=== PATIENT | male | born 1980 | race Caucasian/White ===

== ENCOUNTER 2022-07-05 19:41 | Inpatient (IN) | payer BC, OTHER ==
[~2022-07-05] VITALS: Ht 170.2 cm; Wt 101.2 kg
--- NOTE | 2022-07-05 19:52 | NUR ---
CHIKA 37 FROM HOME C/O SEIZURE FIRST TIME AT HOME, N/V GIVEN ZOFRAN 4MG IVP. AXO4. AT BEDSIDE.
--- NOTE | 2022-07-05 19:53 | NUR ---
DR. COONEY AT BEDSIDE
[2022-07-05 20:32] LABS: BASOPHILS % (AUTO) 0.3 % (0.0-2.0); EOSINOPHILS % (AUTO) 1.8 % (0.0-6.0); HEMATOCRIT 43 % (39-51); LYMPHOCYTES # (AUTO) 3.6 K/uL (0.8-4.8); LYMPHOCYTES % (AUTO) 32.3 % (20.0-44.0); MEAN CORPUSCULAR HGB CONC 35 g/dl (31.0-36.0); MEAN CORPUSCULAR VOLUME 84 fL (80-96); MONOCYTES # (AUTO) 1.2 K/uL (0.1-1.30); MONOCYTES % (AUTO) 10.7 % (2.0-12.0); NEUTROPHILS # (AUTO) 6.2 K/uL (1.8-8.9); NEUTROPHILS % (AUTO) 54.9 % (43.0-81.0); PLATELET COUNT (AUTO) 278 K/uL (150-450); RED BLOOD CELL COUNT(AUTO) 5.16 MIL/uL (4.5-6.0); WHITE BLOOD COUNT (AUTO) 11.3 K/uL (4.3-11.0)
[2022-07-05 20:41] LABS: ALBUMIN 3.8 g/dL (3.4-5.0); BILIRUBIN,DIRECT 0.2 mg/dL (0.0-0.2); BILIRUBIN,TOTAL 0.5 mg/dL (0.2-1.0); CALCIUM, SERUM 8.7 mg/dL (8.5-10.1); CREATININE 1.4 mg/dL (0.6-1.3); TOTAL PROTEIN, SERUM 6.6 g/dL (6.4-8.2)
--- NOTE | 2022-07-05 20:51 | NUR ---
PT TAKEN TO CT
[2022-07-05] MEDS ORDERED: LORAZEPAM INJ 2 MG/ML VIAL IV ONE (22:00)
[2022-07-05] MEDS ORDERED: LEVETIRACETAM (500MG) 1,000 MG in IV NS 0.9% 100 ML IV SCH (22:00)
[2022-07-05] MEDS ORDERED: LEVETIRACETAM (500MG) 500 MG/5 ML VIAL IV ONE (22:00)
[2022-07-05] MEDS ORDERED: LORAZEPAM INJ 2 MG/ML VIAL ONE (22:01)
--- NOTE | 2022-07-05 22:08 | NUR ---
PT NOTED W SEIZURE STARTING AT 2158 ENDING AT 2200. ATIVAN AND KEPPRA GIVEN THROUGH PERIPHERAL IV. 2L O2 VIA NC ADMINISTERED. SPOUSE AT [place].
[2022-07-05] MEDS ORDERED: IV PREMIX D5 1/2NS + KCL 1,000 ML IV ONE ×2 (22:30→23:01)
--- NOTE | 2022-07-05 22:32 | NUR ---
DR. KHURRAM LORENZ - NEUROLOGIST [phone] [facility] DONE AT [facility] JOANN RODAS BACK IN 2016
--- NOTE | 2022-07-05 22:39 | NUR ---
CALLED [facility] PAGE LINE TO HAVE A CALL BACK FROM DR. LORENZ OR HIS ONCALL PER DR. BURT REQUEST.
--- NOTE | 2022-07-05 22:46 | NUR ---
COVID SWAB DONE AND SENT TO LAB
--- NOTE | 2022-07-05 23:26 | NUR ---
CALLED [facility] PAGE LINE TO FOLLOW UP ON NEUROLOGY CALL BACK
[2022-07-06] MEDS ORDERED: ZOLPIDEM TARTRATE 5 MG TABLET PO PRN
[2022-07-06] MEDS ORDERED: ONDANSETRON HCL/PF 4 MG/2 ML VIAL IVP PRN
[2022-07-06] MEDS ORDERED: LEVETIRACETAM (500MG) 500 MG in IV NS 0.9% 100 ML IV SCH ×2
[2022-07-06] MEDS ORDERED: LORAZEPAM INJ 2 MG/ML VIAL IV PRN
[2022-07-06] MEDS ORDERED: MAG HYDROX/AL HYDROX/SIMETH 30 ML UDC PO PRN
[2022-07-06] MEDS ORDERED: MAGNESIUM HYDROXIDE 30 ML UDC PO PRN
[2022-07-06] MEDS ORDERED: Z GUARD REMEDY 4 OZ OINT TP PRN
--- NOTE | 2022-07-06 00:53 | NUR ---
IV LINE DISLODGED. RESTARTED 20G R AC
[2022-07-06] MEDS ORDERED: IV NS 0.9% 1,000 ML IV PRN ×2 (00:59)
--- NOTE | 2022-07-06 01:45 | NUR ---
RECEIVED PT REPORT FROM NURSE REEVES OF ED.
--- NOTE | 2022-07-06 01:47 | NUR ---
REPORT GIVEN TO BRANDEE NETTLES 3RD FLOOR W
--- NOTE | 2022-07-06 02:00 | NUR ---
WORKFORCE DEVELOPMENT SPECIALIST NOTE RECEIVED PT FROM WELDER FITTER HELPER. PT ABLE TO WALK FROM GURNEY TO BED. A/OX4, ABLE TO MAKE NEEDS KNOWN. ORIENTED TO STAFF AND UNIT. PT IS IN RA TOLERATING WELL, BREATHING EVEN AND UNLABORED @ THIS TIME. PT IV PRESENT ON RIGHT AC #20G RUNNING NS @ 200MLS/HR, PATENT, INTACT AND FLUSHES WELL W/ NO S & SX OF INFILTRATION @ SITE NOTED. PT HAS A TELE MONITOR WITH CURRENT READING OF SINUS RHYTHM , HR 90BPM. SKIN IS WARM AND DRY. PT BELONGINGS LIST ARE ACCOUNTED FOR, LISTED AND FILED ON THE PT CHART. SUCTION @ BEDSIDE IS IN PLACE. ALL NEEDS ATTENDED. SAFETY MEASURES IS INITIATED. BED AT LOWEST AND LOCKED POSITION. SIDE RAILS UP X 4, PADDED. BEDSIDE TABLE AND CALL LIGHT IS EASY REACH. BED ALARM IS ON. WILL CONTINUE TO MONITOR PT ACCORDINGLY.
--- NOTE | 2022-07-06 02:17 | NUR ---
PT TRANSPORTED TO [facility] VIA ACLS PROTOCOL
[2022-07-06 04:00] VITALS: BP 112/87
[2022-07-06 06:27] LABS: BASOPHILS % (AUTO) 0.1 % (0.0-2.0); EOSINOPHILS % (AUTO) 0.1 % (0.0-6.0); HEMATOCRIT 42 % (39-51); HEMOGLOBIN 14.4 g/dL (13.5-17.5); LYMPHOCYTES # (AUTO) 1.1 K/uL (0.8-4.8); LYMPHOCYTES % (AUTO) 6.2 % (20.0-44.0); MEAN CORPUSCULAR HGB CONC 34 g/dl (31.0-36.0); MEAN CORPUSCULAR VOLUME 84 fL (80-96); MONOCYTES # (AUTO) 1.1 K/uL (0.1-1.30); MONOCYTES % (AUTO) 6.1 % (2.0-12.0); NEUTROPHILS # (AUTO) 15.4 K/uL (1.8-8.9); NEUTROPHILS % (AUTO) 87.5 % (43.0-81.0); PLATELET COUNT (AUTO) 264 K/uL (150-450); RED BLOOD CELL COUNT(AUTO) 5.04 MIL/uL (4.5-6.0); WHITE BLOOD COUNT (AUTO) 17.6 K/uL (4.3-11.0)
--- NOTE | 2022-07-06 06:50 | NUR ---
RN CLOSING NOTE PT ASLEEP & RESTING COMFORTABLY IN BED. A/OX4,RESPONSIVE AND FOLLOWS VERBAL COMMAND. PT IS IN RA W/ NO S & SX OF RESPIRATORY DISTRESS @ THIS TIME. PT IV PRESENT ON RIGHT AC #20G RUNNING NS @ 200MLS/HR, PATENT, INTACT AND FLUSHES WELL W/ NO S & SX OF INFILTRATION @ SITE NOTED. PT HAS A TELE MONITOR WITH CURRENT READING OF SINUS RHYTHM, HR 96 BPM. ADMINISTERED MEDICATIONS ACCORDINGLY PER MD'S ORDER. SAFETY MEASURES IS INITIATED. BED AT LOWEST AND LOCKED POSITION. SIDE RAILS UP X 4, PADDED. BEDSIDE TABLE AND CALL LIGHT IS EASY REACH. BED ALARM IS ON. WILL ENDORSE TO THE NEXT SHIFT FOR CONTINUITY OF CARE.
[2022-07-06 07:19] LABS: CALCIUM, SERUM 8.1 mg/dL (8.5-10.1); CREATININE 1.1 mg/dL (0.6-1.3); MAGNESIUM 2.2 mg/dL (1.8-2.4); PHOSPHORUS 1.7 mg/dL (2.5-4.9)
[2022-07-06 08:00] VITALS: BP 135/86
--- NOTE | 2022-07-06 08:27 | NUR ---
RN OPENING NOTE RECEIVED PATIENT IN BED, AO X 3. SKIN IS WARM TO TOUCH KEEP CLEAN/DRY. RESPIRATORY EVEN AND UNLABORED IN ROOM AIR. KEPT ELEVATED HOB FOR ENSURE AIRWAY/ASPIRATION PRECAUTION, SAFETY MEASURE IN PLACED; BED IS LOCK AND IN LOWEST POSITION. BED ALARM IS ON AT ALL THE TIME FOR SAFETY. CALL LIGHT WITHIN REACH.
[2022-07-06] MEDS ORDERED: ZOLP10TA2 PO (09:43)
[2022-07-06] MEDS ORDERED: HYDR25TA4 PO (09:43)
[2022-07-06] MEDS ORDERED: DEXT30TA10 PO (09:43)
[2022-07-06] MEDS ORDERED: POTA10TA11 PO (09:43)
[2022-07-06] MEDS ORDERED: MULT-447 PO (09:44)
[2022-07-06] MEDS: IBUPROFEN 600 MG TABLET PO PRN ×2 (09:58→21:21)
[2022-07-06] MEDS: LEVETIRACETAM (500MG) 1,000 MG in IV NS 0.9% 100 ML IV SCH ×2 (11:01→21:22)
[2022-07-06] MEDS: POTASSIUM CHLORIDE 20 MEQ TAB.PRT.SR PO SCH ×3 (13:47→15:52)
[2022-07-06] MEDS ORDERED: K PHOS NEUTRAL 250 MG TABLET PO ONE (15:30)
[2022-07-06 16:07] VITALS: BP 116/77
[2022-07-06 18:03] LABS: BILIRUBIN,URINE NEGATIVE (NEGATIVE); LEUKOCYTE ESTERASE ,URINE NEGATIVE (NEGATIVE); NITRITE, URINE NEGATIVE (NEGATIVE); PROTEIN,URINE NEGATIVE (NEGATIVE); UGLUCOSE NEGATIVE (NEGATIVE); UROBILINOGEN,URINE 0.2 EU/dL (0.2)
[2022-07-06 18:05] LABS: COLOR,URINE LIGHT YELLOW (YELLOW)
[2022-07-06 18:20] LABS: CREATININE, URINE 36.7 MG/DL (30.0-125.0)
[2022-07-06 18:41] LABS: BACTERIA,URINE None seen /HPF (None Seen); SQUAMOUS EPITHELIAL CELL,UR Few /HPF (None Seen); WBC,URINE NONE SEEN /HPF (0-3)
--- NOTE | 2022-07-06 18:42 | NUR ---
RN CLOSING NOTE PATIENT RESTING IN BED. IN NO ACUTE DISTRESS OBSERVED, ALSO NO EPISODE OF SEIZURE DURING THE SHIFT. RESPIRATORY EVEN AND UNLABORED IN ROOM AIR. SKIN IS WARM TO TOUCH KEEP CLEAN/DRY. KEPT LOWEST BED POSITION. BED ALARM IS ON AT ALL TIMES FOR SAFETY. CALL LIGHT WITHIN REACH, WILL ENDORSE PUMPER GAGER.
[2022-07-06 20:00] VITALS: BP 131/82
--- NOTE | 2022-07-06 20:00 | NUR ---
PATIENT ALERT/ORIENTED X4, ROOM AIR, CALM, EATING DINNER. RAC PERIPHERAL LINE, INFUSING NS, SR ON THE TELE. AND FRIEND AT THE BEDSIDE. SEIZURE PRECAUTION. INDEPENDENT, AMBULATORY, KEPT SAFE, WILL CONTINUE TO MONITOR.
[2022-07-07] VITALS: BP 120/83
[2022-07-07 04:00] VITALS: BP 103/70
[2022-07-07 06:11] LABS: BASOPHILS % (AUTO) 0.4 % (0.0-2.0); EOSINOPHILS % (AUTO) 1.2 % (0.0-6.0); HEMATOCRIT 44 % (39-51); HEMOGLOBIN 15.1 g/dL (13.5-17.5); LYMPHOCYTES % (AUTO) 18.9 % (20.0-44.0); MEAN CORPUSCULAR HGB CONC 34 g/dl (31.0-36.0); MEAN CORPUSCULAR VOLUME 85 fL (80-96); MONOCYTES # (AUTO) 0.8 K/uL (0.1-1.30); MONOCYTES % (AUTO) 7.3 % (2.0-12.0); NEUTROPHILS # (AUTO) 7.5 K/uL (1.8-8.9); NEUTROPHILS % (AUTO) 72.2 % (43.0-81.0); PLATELET COUNT (AUTO) 223 K/uL (150-450); RED BLOOD CELL COUNT(AUTO) 5.18 MIL/uL (4.5-6.0); WHITE BLOOD COUNT (AUTO) 10.3 K/uL (4.3-11.0)
--- NOTE | 2022-07-07 06:13 | NUR ---
ALERT AND ORIENTED X3 TO 4, ROOM AIR, GIVEN MOTRIN X1 FOR RIGHT LEG PAIN. SEIZURE PRECAUTION, KEPPRA IV Q12 HOURS. MONITOR ELECTROLYTES, DISCHARGE PLANNING TO HOME.
[2022-07-07 06:32] LABS: CALCIUM, SERUM 8.3 mg/dL (8.5-10.1); CREATININE 1.3 mg/dL (0.6-1.3); MAGNESIUM 2.5 mg/dL (1.8-2.4); POTASSIUM 3.5 mmol/L (3.5-5.1)
--- NOTE | 2022-07-07 07:43 | NUR ---
RN OPENING NOTE RECEIVED PATIENT IN BED, AO X 3-4. IN NO ACUTE DISTRESS OBSERVED. SKIN IS WARM TO TOUCH KEEP CLEAN/DRY. RESPIRATORY EVEN AND UNLABORED IN ROOM AIR. KEPT ELEVATED HOB FOR ENSURE AIRWAY/ASPIRATION PRECAUTION, SAFETY MEASURE IN PLACED; BED IS LOCK AND IN LOWEST POSITION. BED ALARM IS ON AT ALL TIMES FOR SAFETY. CALL LIGHT WITHIN REACH. WILL CONTINUE TO MONITOR.
[2022-07-07] MEDS: LEVETIRACETAM (500MG) 1,000 MG in IV NS 0.9% 100 ML IV SCH (09:18)
[2022-07-07 09:29] VITALS: BP 145/95
[2022-07-07] MEDS: IBUPROFEN 600 MG TABLET PO PRN (11:04)
[2022-07-07 12:00] VITALS: BP 132/94
[2022-07-07] MEDS ORDERED: LEVE1000 PO (14:32)
[2022-07-07 16:23] VITALS: BP 123/81
--- NOTE | 2022-07-07 17:00 | NUR ---
PATIENT D/C TO HOME AND GIVEN DISCHARGE INSTRUCTION INCLUDE DISCONTINUE/NEW MEDICATIONS. PATIENT IN STABLE CONDITION, IN NO DISTRESS OBSERVED.
== END 2022-07-07 16:58 | disposition home or self-care (01) | DRG 640 ==
LOC: ER 19:49 → TELE 07-06 01:52
PROVIDERS: ADMIT Nurse Practitioner Acute Care; ATTEND Nurse Practitioner Acute Care
DX: E87.1 Hypo-osmolality and hyponatremia (principal); G92.8 Other toxic encephalopathy; N17.0 Acute kidney failure with tubular necrosis; Q85.83 Von Hippel-Lindau syndrome; E87.6 Hypokalemia; R56.9 Unspecified convulsions; D72.829 Elevated white blood cell count, unspecified; Z68.33 Body mass index [BMI] 33.0-33.9, adult; E66.9 Obesity, unspecified; Z98.2 Presence of cerebrospinal fluid drainage device; Z88.6 Allergy status to analgesic agent; Z20.822 Contact with and (suspected) exposure to COVID-19
CPT/HCPCS: 36415; 70450-TC; 71045-TC; 80048-TC; 80076-TC; 81001; 82570-TC; 82962-TC; 83735-TC; 84100-TC; 84300-TC; 85025-TC; 87081-TC; A4223; C9803; G0378; J1953; J2060; J3490; J7030